=== PATIENT | female | born 2000 | race Two or more races ===

== ENCOUNTER 2020-10-27 08:47 | Emergency (ER) | payer OTHER ==
[~2020-10-27] VITALS: Ht 157.5 cm; Wt 62.6 kg
[2020-10-27] MEDS ORDERED: PRENATABS RX T1 EACH PO (08:54)
== END 2020-10-27 15:41 | disposition home or self-care (01) ==
LOC: ER 08:47
DX: O26.851 Spotting complicating pregnancy, first trimester (principal); Z3A.16 16 weeks gestation of pregnancy

== ENCOUNTER 2020-11-03 00:08 | Emergency (ER) | payer OTHER ==
[~2020-11-03] VITALS: Ht 157.5 cm; Wt 63.5 kg
[~2020-11-03 00:08] MED LIST: PRENATABS RX T1 EACH PO
[2020-11-03] MEDS ORDERED: PEPCID AC20 MG PO (04:34)
[2020-11-03] MEDS ORDERED: INTESTINEX680 M2 PO (04:34)
[2020-11-03] MEDS ORDERED: DICY20TA PO (04:34)
[2020-11-03] MEDS ORDERED: CEPHALEXIN500 MG PO (05:36)
== END 2020-11-03 06:03 | disposition home or self-care (01) ==
LOC: ER 00:08
DX: R10.9 Unspecified abdominal pain (principal); R19.7 Diarrhea, unspecified; R11.2 Nausea with vomiting, unspecified; N39.0 Urinary tract infection, site not specified

== ENCOUNTER 2021-01-30 10:34 | Outpatient (CLI) | payer OTHER ==
[~2021-01-30 10:34] MED LIST changes: +CEPHALEXIN500 MG PO; +DICY20TA PO; +INTESTINEX680 M2 PO; +PEPCID AC20 MG PO
== END 2021-01-30 13:33 | disposition home or self-care (01) ==
LOC: NST 10:34
PROVIDERS: ATTEND Obstetrics & Gynecology
DX: Z34.83 Encounter for supervision of other normal pregnancy, third trimester (principal)

== ENCOUNTER → 2021-03-03 | Emergency (ER) | payer OTHER ==
[~2021-03-03] VITALS: Ht 157.5 cm; Wt 68.0 kg
== END | disposition left against medical advice (07) ==
LOC: ER 13:59
DX: Z53.20 Procedure and treatment not carried out because of patient's decision for unspecified reasons (principal)